=== PATIENT | male | born 1965 | race Caucasian/White ===

== ENCOUNTER 2021-07-08 06:25 | Day surgery (SDC) | payer BC ==
[~2021-07-08 06:25] MED LIST: Lactated Ringers 1,000 ML IV SCH; Lidocaine 1%/Sod Bicarbonate in NS 8.4% 1 ML Syringe IDERM PRN; Sodium Chloride 0.9% 10 ML Syringe FLUSH SCH
[2021-07-08] MEDS ORDERED: Lidocaine 1% 4 ML ONE (06:27)
[2021-07-08] MEDS ORDERED: Midazolam 1 MG/ML 2 ML SDV ONE (06:27)
[2021-07-08] MEDS ORDERED: fentaNYL 250 MCG/5 ML SDV ONE (06:27)
[2021-07-08] MEDS ORDERED: Propofol 200 MG/20 ML SDV ONE ×2 (06:27→08:37)
[2021-07-08] MEDS ORDERED: Ondansetron 4 MG/2 ML SDV ONE ×2 (06:27→09:55)
[2021-07-08] MEDS ORDERED: EPINEPHrine 1 MG/ML SDV ONE (06:35)
[2021-07-08] MEDS ORDERED: Ropivacaine 0.5% 5 MG/ML 30 ML SDV ONE (06:35)
[2021-07-08] MEDS ORDERED: Rocuronium 50 MG/5 ML Vial ONE (07:02)
[2021-07-08] MEDS ORDERED: ceFAZolin 1 GM Vial ONE (07:03)
[2021-07-08] MEDS ORDERED: EPINEPHrine 1 MG/ML 30 ML MDV IRR SCH (07:45)
[2021-07-08] MEDS ORDERED: Lactated Ringers 1,000 ML ONE ×2 (08:56→10:36)
[2021-07-08] MEDS ORDERED: fentaNYL 100 MCG/2 ML SDV IVPUSH PRN (09:03)
[2021-07-08] MEDS ORDERED: Ondansetron 4 MG/2 ML SDV IVPUSH PRN (09:03)
[2021-07-08] MEDS ORDERED: Ketorolac 30 MG/ML SDV ONE (09:55)
== END 2021-07-08 12:50 | disposition home or self-care (01) ==
LOC: JD.SDS 06:25
PROVIDERS: ATTEND Orthopaedic Surgery
DX: M75.112 Incomplete rotator cuff tear or rupture of left shoulder, not specified as traumatic (principal); S43.432A Superior glenoid labrum lesion of left shoulder, initial encounter; M75.52 Bursitis of left shoulder; M75.22 Bicipital tendinitis, left shoulder; M10.9 Gout, unspecified; E03.9 Hypothyroidism, unspecified; G47.00 Insomnia, unspecified; E78.2 Mixed hyperlipidemia; E66.9 Obesity, unspecified; G62.9 Polyneuropathy, unspecified; R73.02 Impaired glucose tolerance (oral); Z01.812 Encounter for preprocedural laboratory examination; Z20.822 Contact with and (suspected) exposure to COVID-19; Z98.890 Other specified postprocedural states; Z79.899 Other long term (current) drug therapy; Z79.890 Hormone replacement therapy; Z68.32 Body mass index [BMI] 32.0-32.9, adult; Z88.0 Allergy status to penicillin; Z88.2 Allergy status to sulfonamides; Z87.891 Personal history of nicotine dependence
CPT/HCPCS: 29807; 29827; 82947; 87635; C1713; J0171; J0690; J1885; J2250; J2405; J2704; J2795; J3010; J7120; 01630; 64415; 76942; U0002